=== PATIENT | female | born 1990 | race Caucasian/White ===

== ENCOUNTER → 2018-02-03 | Outpatient (CLI) | payer OTHER ==
[2018-02-03 18:05] LABS: BASO % 0.2 %; BASO ABS # 0.01 K/uL (0-0.2); EOS % 1.7 %; EOS ABS # 0.09 K/uL (0-0.5); HEMATOCRIT 39.2 % (37-47); HEMOGLOBIN 13.6 g/dL (12.0-16.0); IG# 0.01 K/uL (0.00-0.02); LYMPH % 35.7 %; LYMPH ABS # 1.93 K/uL (1.2-3.4); MEAN CELL VOLUME 91.4 fL (80-100); MEAN CORPUSCULAR HEMOGLOBIN 31.7 pg (25-34); MEAN CORPUSCULAR HGB CONC 34.7 g/dl (32-36); MEAN PLATELET VOLUME 11.4 fL (7.4-10.4); MONO % 7.8 %; MONO ABS # 0.42 K/uL (0.11-0.59); NEUT % 54.4 %; NEUT ABS # 2.94 K/uL (1.4-6.5); PLATELET COUNT 223 K/uL (130-400); RED CELL DISTRIBUTION WIDTH CV 12.6 % (11.5-14.5); RED CELL DISTRIBUTION WIDTH SD 41.9 fL (36.4-46.3)
[2018-02-03 19:16] LABS: BLOOD UREA NITROGEN 12 mg/dl (7-18); CALCIUM 8.9 mg/dl (8.5-10.1); CARBON DIOXIDE 25 mmol/L (21-32); CHOLESTEROL 149 mg/dl (0-200); GLUCOSE 83 mg/dl (70-99); POTASSIUM 4.1 mmol/L (3.5-5.1); SODIUM 139 mmol/L (136-145)
[2018-02-03 19:27] LABS: LDL CHOLESTEROL CALCULATED 80 mg/dl
== END | disposition home or self-care (01) ==
LOC: C.LABMFLN 11:32
PROVIDERS: ATTEND Family Medicine
DX: R94.6 Abnormal results of thyroid function studies (principal); E66.9 Obesity, unspecified

== ENCOUNTER 2023-08-25 09:57 | Inpatient (IN) ==
[2023-08-25] MEDS: LACTATED RINGER'S 1,000 ML IV PRN ×2 (15:00→21:31)
[2023-08-25] MEDS ORDERED: OXYTOCIN 30 UNITS/NSS 30 UNITS/500 ML BAG IV PRN (15:13)
[2023-08-25] MEDS ORDERED: LIDOCAINE 1% LOCAL 20 ML VIAL INFIL PRN (15:13)
--- NOTE | 2023-08-25 15:13 | History & Physical Report ---
Date of Service August 25, 2023 Assessment & Plan (1) Supervision of normal first : Plan: Admit to L&D. EFM/toco. Labs. IV. Watson bulb placed, 35cc sterile water. Patient tolerated well. Will plan to start pitocin. Patient agreeable to plan. Admission and Anticipated Discharge Date Admission Date: August 25, 2023 History of Present Illness Chief Complaint: IOL Primary Care Provider: Owen Sauceda, 32yo @ 39 01/03, IOL. Obesity (BMI 40 and higher @ beginning of ) *Growth US @ 32wks *Weekly NSTs @ 34wks *BMI 40 or above offer delivery by EDC. *BMI 50 or greater scheduled detailed/level II anatomy at [id number] 04/04/23 Per [facility] Recs: Recommend restricting weight gain during to 11-20 lbs. Offer Nutrition consult Refer to sleep medicine specialist with any concerns for snoring, excessive daytime sleepiness, apnea or unexplained hypoxia Early Glucola with repeat 26-28 weeks Anatomy u/s with MFM and growth u/s's q 4 weeks Baseline preeclampsia labs, AST/ALT/creatinine and 24 hour urine Deliver by EDC--> Induction scheduled for 08/25 (4th event, call at 10am, move up if able) Anesthesia consult 28 weeks Baby ASA 12 weeks posterior complete previa (resolved) *f/u growth @ 24wks. Allergies Allergy/AdvReac Type Severity Reaction Status Date / Time Penicillins Allergy Hives Verified 08/19/23 15:39 Sulfa (Sulfonamide Allergy Hives Verified 08/19/23 15:39 Antibiotics) Home Medications Medication Instructions Recorded Confirmed Type acetaminophen 325 mg tablet 325 mg PO Q6H PRN Pain 08/31/19 08/25/23 History (Tylenol) fluticasone propionate 50 1 spray intranasal DAILY PRN Nasal 09/05/22 08/25/23 History mcg/actuation nasal Congestion spray,suspension (Flonase Allergy Relief) prenat.vits,hitesh,[id number]-[id number] 1 tab PO DAILY 09/05/22 08/25/23 History aspirin 81 mg chewable tablet 81 mg PO DAILY 06/24/23 08/25/23 History Patient History Medical History Abnormal thyroid function test Noted hx per records, euthyroid on most recent labs (TSH 1.097/WNL on 02/19/23) COVID-19 06/2022- rx'd Paxlovid by [facility] PCP 05/16/2023 ([facility] Urgent care)- cold/flu symptoms, fever, congestion > resolved HPV (human papilloma virus) infection Obesity Per MFM note 02/28/23: Recommendations provided including nutrition consult, evaluating for signs of ALEX, performing gestational diabetes screening, [facility] ultrasounds + anesthesia consult Surgical History History of oral surgery History of root canal procedure Family History Mother Hypertension Family history of thyroid problem Grandmother (Maternal) Cancer S/P removal of parathyroid gland Uncle Hypertension Father Kidney stone Unknown No problems noted. Other Diabetes Social History (Updated 01/14/23 @ 10:09 by Ana Wang RN) Smoking Status: Former smoker Second Hand Exposure: Yes (friends); Do You Dip or Chew Tobacco: No; Hx Alcohol Use: No (Hx social drinking prior to ) Hx Substance Use: No Preferred Language: [place] Communication Ability: Effective Visual Impairment: No Limitations Hearing Ability: Normal Clinical Asst Required: No Beliefs That Will Affect Care: None marital status: marital status details: Maykel Youssef (35) [phone] Current Living Situation: Spouse Current Living Situation Comment: Liam Youssef current occupational status: employed 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 Other Information That Helps Us Care for You: No Feels Safe at Home: Yes Safety Concerns: Feels Safe At This Time Childhood Exposure to Second-Hand Smoke: No Dental Care, Regularly: No Seatbelt Use: always Review of Systems All systems reviewed & are unremarkable except as noted in HPI & below Physical Exam Physical Exam: FHT Cat 1 [place] none SVE c/th/high Constitutional: WD/WN, vitals as above Respiratory: normal respiratory effort, lungs clear to auscultation no respiratory distress Cardiovascular: Rate/Rhythm: regular rate and regular rhythm Gastrointestinal (Abdomen): Inspection/Auscultation: abdomen normal to inspection Percussion/Palpation: abdomen soft; abdomen nontender Gravid. No s/s chorio or abruption. Skin: no rashes, warm and dry Psychiatric: A+Ox3, euthymic affect Results & Data Vital Signs (Past 12 Hours) Vital Signs Temp Pulse Resp BP O2 Del Method 08/25/23 14:49 36.9 C 18 Room Air 08/25/23 13:56 100 H 141/77 H 08/25/23 13:55 18 08/25/23 13:55 36.9 C 18 Coding Level of Care Code None Diagnoses Supervision of normal first Z34.00
[2023-08-25] MEDS: OXYTOCIN 30 UNITS/NSS 30 UNITS/500 ML BAG IV PRN (15:32)
[2023-08-25 16:07] LABS: Hematocrit (blood only) 36.5 % (37.0-47.0); Hemoglobin 12.7 g/dl (12.0-16.0); Mean Corpuscular Hemoglobin 32.6 pg (25.0-34.0); Mean Corpuscular Hgb Conc 34.8 g/dL (32.0-36.0); Mean Corpuscular Volume 93.6 fL (80.0-100.0); Mean Platelet Volume 11.3 fL (9.4-12.4); Platelet Count 204 K/uL (130-400); RDW Coefficient of Variation 12.9 % (11.5-14.5); RDW Standard Deviation 44.2 fL (36.4-46.3); White Blood Count 9.22 K/ul (4.8-10.8)
[2023-08-25 16:39] LABS: Albumin Globulin Ratio 1.2 (0.9-2); Albumin Level 3.3 gm/dl (3.4-5.0); BUN Creatinine Ratio 12.9 (10-20); Bilirubin,Total 0.5 mg/dl (0.2-1.0); Calcium 8.9 mg/dl (8.6-10.3); Creatinine Clr Calc Pharmacy 229.5 ml/min; Est GFR (African American) 137.3 ml/min; Est GFR (Non-African American) 118.5 ml/min; Globulin 2.8 gm/dl (2.5-4.0); Potassium 3.9 mmol/L (3.5-5.1); Total Protein 6.1 gm/dl (6.0-8.3)
[2023-08-26] MEDS: LACTATED RINGER'S 1,000 ML IV PRN ×3 (05:32→14:49)
--- NOTE | 2023-08-26 06:01 | Labor Progress Brief Note ---
Date of Service August 26, 2023 Subjective Comfortable, does not desire epidural at this time. FHT Cat 1 Zillah Q 4 SVE - difficult exam, 4-5/80/-3 Continue pitocin, station too high at this time to AROM. Assessment & Plan Admission and Anticipated Discharge Date Admission Date: August 25, 2023 Results & Data Vital Signs (Past 12 Hours) Vital Signs Temp Pulse Resp BP 08/26/23 05:05 85 127/71 08/26/23 04:06 92 H 139/70 08/26/23 03:35 16 08/26/23 03:35 36.9 C 16 08/26/23 03:11 88 136/63 08/26/23 02:05 83 128/62 08/26/23 01:05 85 130/76 08/26/23 00:05 86 134/62 08/25/23 23:47 20 08/25/23 23:47 36.8 C 20 08/25/23 23:05 84 130/70 08/25/23 22:06 82 134/68 08/25/23 21:06 82 139/65 08/25/23 20:05 90 135/76 08/25/23 19:07 90 136/66 08/25/23 19:01 36.6 C 20 08/25/23 19:00 18 08/25/23 19:00 18 08/25/23 18:30 18 08/25/23 18:30 18 08/25/23 18:05 83 123/60 08/25/23 18:00 18 08/25/23 18:00 18 Coding Level of Care Code None
--- NOTE | 2023-08-26 09:32 | Labor Progress Brief Note ---
Date of Service August 26, 2023 Subjective Reason For Note: Routine Evaluation Assessment & Plan (1) Obesity affecting , antepartum: Plan: 32-year-old G1, P0 currently at 39 weeks 5 days gestational age. Induction of labor for advanced BMI 1. Fetus: Category 1 tracing 2. Labor: Status post Watson. Continue oxytocin per regular protocol. AROM for clear. 3. GBS negative 4. Vitals: Within normal limits Obesity type affecting : unspecified obesity Qualified Code(s): O99.210 - Obesity complicating , unspecified trimester (2) Supervision of normal first : Trimester: third trimester Qualified Code(s): Z34.03 - Encounter for supervision of normal first , third trimester Admission and Anticipated Discharge Date Admission Date: August 25, 2023 Physical Exam Genitourinary: Manual OB Exam: + cervical dilation 5 cm, + cervical effacement 70%, + station -2 and + amniotic fluid (AROM) clear OB Exam Monitor Tracing: + external FHT monitor used, + external uterine monitor used, + category I and + normal FHT variability; no early decelerations present, no late decelerations present and no variable decelerations Results & Data Vital Signs (Past 12 Hours) Vital Signs Temp Pulse Resp BP 08/26/23 09:05 94 H 131/74 08/26/23 08:47 37.1 C 20 08/26/23 08:05 96 H 136/76 08/26/23 07:27 36.9 C 20 08/26/23 07:11 109 H 135/66 08/26/23 06:05 100 H 127/70 08/26/23 05:05 85 127/71 08/26/23 04:06 92 H 139/70 08/26/23 03:35 16 08/26/23 03:35 36.9 C 16 08/26/23 03:11 88 136/63 08/26/23 02:05 83 128/62 08/26/23 01:05 85 130/76 08/26/23 00:05 86 134/62 08/25/23 23:47 20 08/25/23 23:47 36.8 C 20 08/25/23 23:05 84 130/70 08/25/23 22:06 82 134/68 Coding Level of Care Code None Diagnoses Obesity affecting , antepartum, unspecified obesity type O99.210 Obesity type affecting : unspecified obesity Encounter for supervision of normal first in third trimester Z34.03 Trimester: third trimester
[2023-08-26] MEDS ORDERED: fentaNYL citrate PF 100 MCG/2 ML VIAL ONE (10:05)
[2023-08-26] MEDS ORDERED: ePHEDrine sulfate 50 MG/ML AMP ONE (10:06)
[2023-08-26] MEDS ORDERED: fentANYL 2 MCG/ML BUPIVacaine 0.125%-NSS 100ML BAG ONE (10:06)
[2023-08-26] MEDS ORDERED: SODIUM CHLORIDE 0.9% PF INJ 10 ML VIAL ONE (10:06)
[2023-08-26] MEDS ORDERED: BUPIVACAINE 0.25% PF 30 ML VIAL ONE (10:06)
[2023-08-26] MEDS ORDERED: LIDOCAINE 2%/EPINEPHRINE 1:200,000 20 ML PF ONE ×2 (10:07→17:23)
--- NOTE | 2023-08-26 10:25 | Anesthesiology Consultation ---
Date of Service August 26, 2023 Assessment & Plan Chart Review Chart Review: Patient NOT seen in Pre Admission Testing and Acceptable Risk for Labor Epidural Consults Requested none ASA ASA3 Proposed Anesthesia Anesthesia Type: Labor Epidural Risk / Benefits Reviewed With: PT / POA / Parent / Guardian, Accepts Plan and Informed Consent Obtained History Height/Weight Height: 5 ft 9 in Weight: 182.344 kg Allergies Allergy/AdvReac Type Severity Reaction Status Date / Time Penicillins Allergy Hives Verified 08/19/23 15:39 Sulfa (Sulfonamide Allergy Hives Verified 08/19/23 15:39 Antibiotics) Medications Home Medications Medication Instructions Recorded Confirmed Last Taken acetaminophen 325 mg tablet 325 mg PO Q6H PRN Pain 08/31/19 08/25/23 08/24/23 08:00 (Tylenol) fluticasone propionate 50 1 spray intranasal DAILY PRN Nasal 09/05/22 08/25/23 Unknown mcg/actuation nasal Congestion spray,suspension (Flonase Allergy Relief) prenat.vits,hitesh,zsr-gjrp-wzdmh 1 tab PO DAILY 09/05/22 08/25/23 08/25/23 08:00 aspirin 81 mg chewable tablet 81 mg PO DAILY 06/24/23 08/25/23 08/25/23 08:00 Active Medications Generic Name Dose Route Start Last Admin Trade Name Freq PRN Reason Stop Dose Admin Oxytocin 30 units in 500 mls @ 24 mls/hr 08/25/23 15:13 08/26/23 10:00 Pitocin 30 Units/Nss IV 08/27/23 15:12 1.44 units/hr .[id number] PRN 24 mls/hr Labor Induction/Augmentation Titration Protocol 1.44 UNITS/HR Lactated Ringer's 1,000 mls @ 125 mls/hr 08/25/23 15:13 08/26/23 10:28 Lr IV 08/27/23 15:12 999 mls/hr .Q8H PRN Administration L&D Protocol Protocol NPO Date Last Intake of Fluids: 08/26/23 Time Last Intake of Fluids: 10:00 Date Last Intake of Solids: 08/25/23 Time Last Intake of Solids: 10:30 Past Medical History Medical History HPV (human papilloma virus) infection COVID-19 06/2022- rx'd Paxlovid by [facility] PCP 05/16/2023 ([facility] Urgent care)- cold/flu symptoms, fever, congestion > resolved Abnormal thyroid function test Noted hx per records, euthyroid on most recent labs (TSH 1.097/WNL on 02/19/23) Obesity Per MFM note 02/28/23: Recommendations provided including nutrition consult, evaluating for signs of ALEX, performing gestational diabetes screening, M ultrasounds + anesthesia consult Exercise / Class Metabolic Activity II 4-5 Yardwork/Stairs/Walk up hill Past Family History Family History Mother Hypertension Family history of thyroid problem Grandmother (Maternal) Cancer S/P removal of parathyroid gland Uncle Hypertension Father Kidney stone Unknown No problems noted. Other Diabetes Past Surgical History Surgical History History of root canal procedure History of oral surgery Past Anesthesia History No Hx of Anesthesia Complications and No Family Hx of Anesthesia Complications History of PONV No Hx of PONV and No Hx of Motion Sickness Social History Smoking Status: Former smoker Do You Dip or Chew Tobacco: No Hx Alcohol Use: No (Hx social drinking prior to ) Hx Substance Use: No substance use type: prescription drug Review of Systems ROS Unobtainable: All systems reviewed & are unremarkable except as noted in HPI & below Physical Exam Vital Signs Last Vital Signs Temp 36.4 C L 08/26/23 09:40 Pulse 107 H 08/26/23 10:05 Resp 20 08/26/23 09:40 BP 128/82 08/26/23 10:05 O2 Del Method Room Air 08/25/23 14:49 Constitutional + morbidly obese ENMT Mouth: no TMJ abnormality Thyromental Distance: > or= 3.5 Finger Breadths Mallampati Class: III Neck normal visual inspection and trachea midline; neck extension not limited Respiratory normal respiratory effort Auscultation: lungs clear to auscultation bilaterally Cardiovascular Rate/Rhythm: regular rate and regular rhythm Heart Sounds: no murmur Musculoskeletal Spine: normal cervical ROM Extremities: full ROM of extremities Neurologic moves all extremities Psychiatric Orientation: alert and oriented x 3 Testing Laboratory Results 08/25/23 15:50 11/27/23 15:50 Blood Type O Positive 08/25/23 15:50 Antibody Screen NEGATIVE 08/25/23 15:50
[2023-08-26] MEDS ORDERED: LIDOCAINE 2%/EPINEPHRINE 1:200,000 20 ML PF EPI STA (10:51)
[2023-08-26] MEDS ORDERED: fentANYL 2 MCG/ML BUPIVacaine 0.125%-NSS 100ML BAG EPI PRN (10:51)
[2023-08-26] MEDS ORDERED: NALOXONE HCL 1 MG in SODIUM CHLORIDE 0.9% 1,000 ML IV PRN ×2 (10:51→17:26)
[2023-08-26] MEDS ORDERED: LIDOCAINE 2% MPF LOCAL 5 ML VIAL EPI PRN (10:51)
[2023-08-26] MEDS ORDERED: ePHEDrine sulfate 50 MG/ML AMP IV PRN ×2 (10:51→17:26)
[2023-08-26] MEDS ORDERED: BUPIVACAINE 0.25% PF 30 ML VIAL EPI PRN (10:51)
[2023-08-26] MEDS ORDERED: SODIUM CHLORIDE 0.9% PF INJ 10 ML VIAL EPI STA (10:51)
[2023-08-26] MEDS ORDERED: SODIUM CHLORIDE 0.9% PF INJ 10 ML VIAL EPI PRN (10:51)
[2023-08-26] MEDS ORDERED: diphenhydrAMINE 50 MG/ML VIAL IV PRN ×2 (10:51→17:26)
[2023-08-26] MEDS ORDERED: NALOXONE HCL 0.4 MG/1 ML VIAL/CARP IV PRN ×2 (10:51→17:26)
[2023-08-26] MEDS ORDERED: NALBUPHINE HCL 5 MG in SYRINGE 0 ML IV PRN ×2 (10:51→17:26)
[2023-08-26] MEDS ORDERED: fentaNYL citrate PF 100 MCG/2 ML VIAL EPI PRN (10:51)
[2023-08-26] MEDS ORDERED: BUPIVACAINE 0.25% PF 30 ML VIAL EPI STA (10:51)
[2023-08-26] MEDS ORDERED: ROPIVACAINE 0.5% PF 5 MG/ML 20 ML VIAL EPI PRN (10:51)
[2023-08-26] MEDS ORDERED: fentaNYL citrate PF 100 MCG/2 ML VIAL EPI STA (10:51)
--- NOTE | 2023-08-26 14:11 | Labor Progress Brief Note ---
Date of Service August 26, 2023 Subjective Reason For Note: Routine Evaluation Assessment & Plan (1) Obesity affecting , antepartum: Plan: 32-year-old G1, P0 currently at 39 weeks 5 days gestational age. Induction of labor for advanced BMI 1. Fetus: Category 1 tracing 2. Labor: No change noted. status post Watson. Continue oxytocin per regular protocol. Status post AROM for clear. 3. GBS negative 4. Vitals: Within normal limits Obesity type affecting : unspecified obesity Qualified Code(s): O99.210 - Obesity complicating , unspecified trimester (2) Supervision of normal first : Trimester: third trimester Qualified Code(s): Z34.03 - Encounter for supervision of normal first , third trimester Admission and Anticipated Discharge Date Admission Date: August 25, 2023 Physical Exam Genitourinary: normal external appearance Manual OB Exam: + cervical dilation (4-5), + cervical effacement 70%, + station -2 and + amniotic fluid clear OB Exam Monitor Tracing: + external FHT monitor used, + external uterine monitor used, + category I and + normal FHT variability; no early decelerations present, no late decelerations present and no variable decelerations Results & Data Vital Signs (Past 12 Hours) Vital Signs Temp Pulse Resp BP Pulse Ox 08/26/23 13:59 100 H 131/62 08/26/23 13:56 101 H 100 08/26/23 13:51 98 H 100 08/26/23 13:46 95 H 129/64 100 08/26/23 13:41 92 H 100 08/26/23 13:36 83 100 08/26/23 13:31 80 100 08/26/23 13:30 82 134/61 08/26/23 13:26 112 H 100 08/26/23 13:21 105 H 100 08/26/23 13:16 103 H 100 08/26/23 13:14 102 H 128/64 08/26/23 13:11 101 H 98 08/26/23 13:06 80 100 08/26/23 13:01 94 H 100 08/26/23 12:59 88 123/60 08/26/23 12:56 96 H 100 08/26/23 12:51 88 99 08/26/23 12:46 88 100 08/26/23 12:45 36.6 C 20 08/26/23 12:44 90 124/58 L 08/26/23 12:41 83 100 08/26/23 12:36 82 100 08/26/23 12:31 97 H 20 99 08/26/23 12:29 98 H 135/65 08/26/23 12:26 89 100 08/26/23 12:21 87 100 08/26/23 12:16 92 H 100 08/26/23 12:14 96 H 142/73 H 08/26/23 12:11 101 H 99 08/26/23 12:06 91 H 99 08/26/23 12:01 101 H 99 08/26/23 11:59 96 H 135/68 08/26/23 11:56 86 98 08/26/23 11:51 90 98 08/26/23 11:46 88 99 08/26/23 11:44 93 H 139/68 08/26/23 11:41 80 99 08/26/23 11:36 91 H 99 08/26/23 11:31 83 100 08/26/23 11:29 36.7 C 95 H 20 124/67 08/26/23 11:26 92 H 99 08/26/23 11:21 95 H 99 08/26/23 11:16 108 H 100 08/26/23 11:14 95 H 137/69 08/26/23 11:11 97 H 100 08/26/23 11:06 104 H 99 08/26/23 11:01 110 H 100 08/26/23 10:59 100 H 126/59 L 08/26/23 10:57 121 H 125/60 08/26/23 10:56 106 H 99 08/26/23 10:55 102 H 132/62 08/26/23 10:53 104 H 133/63 08/26/23 10:51 98 08/26/23 10:51 102 H 08/26/23 10:51 107 H 137/65 08/26/23 10:49 116 H 135/67 08/26/23 10:47 114 H 138/69 08/26/23 10:46 107 H 99 08/26/23 10:45 102 H 147/76 H 08/26/23 10:43 100 H 147/80 H 08/26/23 10:41 105 H 100 08/26/23 10:40 96 H 147/86 H 08/26/23 10:36 102 H 100 08/26/23 10:30 36.9 C 20 08/26/23 10:05 107 H 128/82 08/26/23 09:40 36.4 C L 20 08/26/23 09:05 94 H 131/74 08/26/23 08:47 37.1 C 20 08/26/23 08:05 96 H 136/76 08/26/23 07:27 36.9 C 20 08/26/23 07:11 109 H 135/66 08/26/23 06:05 100 H 127/70 08/26/23 05:05 85 127/71 08/26/23 04:06 92 H 139/70 08/26/23 03:35 16 08/26/23 03:35 36.9 C 16 08/26/23 03:11 88 136/63 08/26/23 02:05 83 128/62 Coding Level of Care Code None Diagnoses Obesity affecting , antepartum, unspecified obesity type O99.210 Obesity type affecting : unspecified obesity Encounter for supervision of normal first in third trimester Z34.03 Trimester: third trimester
[2023-08-26] MEDS: OXYTOCIN 30 UNITS/NSS 30 UNITS/500 ML BAG IV PRN (14:58)
[2023-08-26] MEDS ORDERED: ONDANSETRON INJ 2 MG/ML 2 ML VIAL ONE (17:22)
[2023-08-26] MEDS ORDERED: OXYTOCIN 10 UNITS/ML VIAL ONE ×3 (17:22→19:12)
[2023-08-26] MEDS ORDERED: DEXAMETHASONE SOD INJ 4 MG/ML VIAL ONE (17:22)
[2023-08-26] MEDS ORDERED: KETOROLAC 30 MG/ML VIAL ONE (17:23)
[2023-08-26] MEDS ORDERED: MoRPHine SULFATE PF 1 MG/ML 10 ML AMP/VIAL ONE (17:23)
[2023-08-26] MEDS ORDERED: AZITHROMYCIN 500 MG in DEXTROSE 5% 250 ML IV ONE (17:25)
[2023-08-26] MEDS ORDERED: LACTATED RINGER'S 500 ML IV PRN (17:26)
[2023-08-26] MEDS ORDERED: MoRPHine SULFATE PF 1 MG/ML 10 ML AMP/VIAL INT SPINAL ONE (17:26)
[2023-08-26] MEDS ORDERED: NALOXONE HCL 0.08 MG in SYRINGE 1.8 ML IV PRN (17:26)
[2023-08-26] MEDS ORDERED: NO NARCOTICS OR SEDATIVES SCH (17:30)
[2023-08-26] MEDS ORDERED: SODIUM CHLORIDE 0.9% 1,000 ML IV SCH (17:30)
[2023-08-26] MEDS ORDERED: DC INTRASPINAL MORPHINE SCH (17:30)
--- NOTE | 2023-08-26 19:13 | Anesthesia Procedure Note ---
Date of Service August 26, 2023 Anesthesia Post Epidural Note Vital Signs Vital Signs: Temp Pulse Resp BP Pulse Ox O2 Del Method 37.1 C 87 22 98/50 L 100 Room Air 08/26/23 17:15 08/26/23 19:11 08/26/23 17:15 08/26/23 19:07 08/26/23 19:11 08/25/23 14:49 Notes Mental Status: alert / awake / arousable and participated in evaluation Nausea / Vomiting: adequately controlled Pain: adequately controlled Airway Patency, RR, SpO2: stable & adequate BP & HR: stable & adequate Hydration State: stable & adequate Neuraxial Anesthesia: was administered and sensory block is resolving Anesthetic Complications: no major complications apparent Epidural: Removed without complications and With tip intact
--- NOTE | 2023-08-26 19:17 | Operative Report ---
PG Post Operative Report Pre & Post Diagnosis Operation Date: 08/26/23 18:00 Pre-Op Diagnosis: Term , Labor Dystocia Post-Op Diagnosis: Term , Labor Dystocia I identified the patient and participated in the time-out.: Yes Procedure Operation Date: 08/26/23 18:00 Actual Procedures p Section in LD delivery of live female child at 1815 - Phillip Jameson MD Surgeon Phillip Jameson MD Meat Pumper Dr. Ann Cardoso Estimated Blood Loss 800 Findings Consistent with Post-Op Diagnosis Specimens None Description of Procedure The patient was taken to the operating room after consents were ensured. Upon presentation, she was properly identified. Epidural was bolused the anesthesia. The patient was then prepped and draped in normal sterile fashion. Preprocedural timeout was performed. A Pfannenstiel incision was then made with a knife. This was carried down to underlying fascia with the Bovie. The fascia was nicked at the midline with a knife and extended laterally with pickups and Ambrose scissors. The superior aspect of the fascia was grasped with Kochers x2, elevated off the underlying rectus muscles with blunt dissection and Ambrose scissors. Inferior aspect of the fascia was grasped with Kochers x2, elevated off the underlying rectus muscles using blunt dissection. The midline was then entered bluntly, placed on stretch to provide adequate room for delivery. A low transverse uterine incision was then made with a knife. The uterine cavity and amniotic cavity entered bluntly, placed on stretch to provide adequate room for delivery. Baby was noted to be in cephalic presentation and the head was delivered without difficulty. Body and shoulders quickly followed. was noted to be vigorous soon after delivery and 30 second delayed cord clamping was initiated. Cord was double clamped and cut and taken of the awaiting nursery staff for evaluation. Cord blood was obtained. Attention was then turned to delivery of the placenta, which was delivered intact, 3-vessel cord, with gentle cord traction and uterine massage. The uterus was then exteriorized, wrapped in a wet lap and several passes were made, removing any remaining membranes with a dry lap. The hysterotomy was then reapproximated with 0 Vicryl continuous running locked stitch. A second imbricating layer with 0 Vicryl with continuous running stitch. The hysterotomy was then reinspected and hemostasis was noted. Posterior cul-de-sac cleaned of clots and debris's. The uterus was then returned to the maternal abdomen. The right and left paracolic gutters were cleaned of clots and debris. The muscles, subcutaneous and fascial layers were inspected to be hemostatic.The facia was reapproximated with 0 Vicryl in continuous stitch. The subcutaneous layers were reapproximated with 2-0 plain and continuous running stitch in 3 layers. The skin was reapproximated with 3-0 Vicryl with a subcuticular stitch. Needle, sponge, and instrument counts were correct at the completion of the case. Both mother and stable in the immediate post- delivery period I attest to the content of the Intraoperative Record and any orders documented therein. Any exceptions are noted below. OB Procedure charges OB Charges 68790
[2023-08-26] MEDS ORDERED: HYDROCORTISONE ACETATE 25 MG SUPP PR PRN (19:26)
[2023-08-26] MEDS ORDERED: BENZOCAINE 20% SPRY 85 APPLN/85 GM CAN EXT PRN (19:26)
[2023-08-26] MEDS ORDERED: MAGNESIUM HYDROXIDE SUSP 30 ML UDC PO PRN (19:26)
[2023-08-26] MEDS ORDERED: OXYTOCIN 20 UNITS/LR 1,002 ML IV SCH (19:26)
[2023-08-26] MEDS ORDERED: DIPHTHERIA/TETANUS/PERTUSSIS Vaccine (Tdap, Age 7+yrs) 0.5mL SYR/VL IM ONE (19:26)
[2023-08-26] MEDS ORDERED: SENNA 8.6 MG TAB PO PRN (19:26)
[2023-08-26] MEDS ORDERED: ONDANSETRON INJ 2 MG/ML 2 ML VIAL IV PRN (19:26)
[2023-08-26] MEDS ORDERED: ACETAMINOPHEN 1,000 MG/100 ML VIAL IV STA (20:21)
[2023-08-26] MEDS: KETOROLAC TROMETHAMINE 15 MG/ML VIAL IV PRN (20:48)
[2023-08-26] MEDS: SIMETHICONE 80 MG CHEW PO SCH (21:48)
[2023-08-26] MEDS: DOCUSATE SODIUM 100 MG CAP PO SCH (21:48)
[2023-08-26] MEDS: LACTATED RINGER'S 1,000 ML IV SCH (22:25)
[2023-08-27] MEDS: LACTATED RINGER'S 1,000 ML IV SCH (03:49)
[2023-08-27] MEDS: KETOROLAC TROMETHAMINE 15 MG/ML VIAL IV PRN (03:50)
--- NOTE | 2023-08-27 04:45 | Obstetrical Progress Note ---
Date of Service <Ayush Moreno DO - Last Filed: 08/27/23 06:31> August 27, 2023 Assessment & Plan <Ayush Moreno DO - Last Filed: 08/27/23 06:31> (1) Status post delivery: Plan 32 year old female, , POD#1: Tolerating regular diet, Marin catheter still in place, not yet ambulating Vitals reviewed, WNL Pain well controlled with Toradol Routine post-op care - OOB, ambulation, diet progression as tolerated Will have 6 week follow up with Dr[address] Jameson <Phillip Jameson MD - Last Filed: 08/28/23 09:35> (1) Status post delivery: Subjective <Ayush Moreno DO - Last Filed: 08/27/23 06:31> Voiding: marin catheter in place Passing Gas:: No Diet Tolerance:: regular diet Lochia:: Small Feeding Type:: breast feeding Has not yet ambulated Pain well controlled with Toradol Review of Systems -Denies fever or chills -Denies dyspnea, chest pain, or palpitations -Denies dysuria -Denies headache or changes in vision Physical Exam <Ayush Moreno DO - Last Filed: 08/27/23 06:31> General: Alert and oriented. No acute distress Cardiac: Regular rate and rhythm, no murmurs appreciated Respiratory: Lungs clear to auscultation bilaterally, No increased work of breathing Abdominal: Soft, non-tender, non-distended. Bowel sounds present. Uterus: Uterine fundus firm, palpable below umbilicus Extremities: No lower extremity edema, calves non-tender bilaterally Results & Data <Ayush Moreno - Last Filed: 08/27/23 06:31> Vital Signs (Past 12 Hours) Vital Signs Temp Pulse Pulse Resp BP BP Pulse Ox 08/27/23 03:50 36.9 C 73 18 121/76 98 08/27/23 03:30 18 98 08/27/23 02:30 16 94 08/27/23 01:30 20 91 08/27/23 00:30 18 93 08/26/23 23:30 18 95 08/26/23 22:30 16 96 08/26/23 22:30 36.8 C 97 H 16 124/76 96 08/26/23 21:11 78 127/62 08/26/23 21:10 37.1 C 18 08/26/23 21:07 87 96 08/26/23 21:02 71 95 08/26/23 21:01 74 123/61 08/26/23 20:57 70 98 08/26/23 20:52 92 H 97 08/26/23 20:51 74 122/60 08/26/23 20:47 88 97 08/26/23 20:42 87 96 08/26/23 20:41 82 124/65 08/26/23 20:40 36.9 C 18 08/26/23 20:37 75 97 08/26/23 20:32 78 95 08/26/23 20:31 92 H 129/64 08/26/23 20:27 77 97 08/26/23 20:22 76 99 08/26/23 20:21 75 116/59 L 08/26/23 20:17 78 99 08/26/23 20:12 82 99 08/26/23 20:11 80 120/60 08/26/23 20:10 36.9 C 20 08/26/23 20:07 81 100 08/26/23 20:02 79 99 08/26/23 20:01 75 119/58 L 08/26/23 20:00 18 08/26/23 19:57 75 100 08/26/23 19:52 74 99 08/26/23 19:51 75 118/56 L 08/26/23 19:50 20 08/26/23 19:47 88 97 08/26/23 19:46 77 93 08/26/23 19:42 81 98 08/26/23 19:40 18 08/26/23 19:40 86 124/60 08/26/23 19:37 91 H 100 08/26/23 19:32 101 H 99 08/26/23 19:30 16 08/26/23 19:27 100 08/26/23 19:27 90 08/26/23 19:27 93 H 124/56 L 08/26/23 19:22 99 H 100 08/26/23 19:20 16 08/26/23 19:17 100 H 100 08/26/23 19:11 87 100 08/26/23 19:10 36.9 C 18 08/26/23 19:07 90 98/50 L 08/26/23 19:06 94 H 100 08/26/23 17:46 103 H 100 08/26/23 17:44 95 H 145/68 H 08/26/23 17:41 94 H 100 08/26/23 17:36 96 H 100 08/26/23 17:31 92 H 100 08/26/23 17:29 85 139/82 08/26/23 17:26 98 H 100 08/26/23 17:21 99 08/26/23 17:21 106 H 08/26/23 17:21 95 H 92 08/26/23 17:16 104 H 100 08/26/23 17:15 37.1 C 22 08/26/23 17:15 100 H 135/74 08/26/23 17:11 98 H 100 08/26/23 17:06 98 H 100 08/26/23 17:01 95 H 100 08/26/23 16:59 85 136/71 08/26/23 16:56 99 H 100 08/26/23 16:51 90 100 08/26/23 16:46 99 H 100 O2 Del Method 08/27/23 03:50 Room Air 08/27/23 03:30 08/27/23 02:30 08/27/23 01:30 08/27/23 00:30 08/26/23 23:30 08/26/23 22:30 08/26/23 22:30 Room Air 08/26/23 21:11 08/26/23 21:10 08/26/23 21:07 08/26/23 21:02 08/26/23 21:01 08/26/23 20:57 08/26/23 20:52 08/26/23 20:51 08/26/23 20:47 08/26/23 20:42 08/26/23 20:41 08/26/23 20:40 08/26/23 20:37 08/26/23 20:32 08/26/23 20:31 08/26/23 20:27 08/26/23 20:22 08/26/23 20:21 08/26/23 20:17 08/26/23 20:12 08/26/23 20:11 08/26/23 20:10 08/26/23 20:07 08/26/23 20:02 08/26/23 20:01 08/26/23 20:00 08/26/23 19:57 08/26/23 19:52 08/26/23 19:51 08/26/23 19:50 08/26/23 19:47 08/26/23 19:46 08/26/23 19:42 08/26/23 19:40 08/26/23 19:40 08/26/23 19:37 08/26/23 19:32 08/26/23 19:30 08/26/23 19:27 08/26/23 19:27 08/26/23 19:27 08/26/23 19:22 08/26/23 19:20 08/26/23 19:17 08/26/23 19:11 08/26/23 19:10 08/26/23 19:07 08/26/23 19:06 08/26/23 17:46 08/26/23 17:44 08/26/23 17:41 08/26/23 17:36 08/26/23 17:31 08/26/23 17:29 08/26/23 17:26 08/26/23 17:21 08/26/23 17:21 08/26/23 17:21 08/26/23 17:16 08/26/23 17:15 08/26/23 17:15 08/26/23 17:11 08/26/23 17:06 08/26/23 17:01 08/26/23 16:59 08/26/23 16:56 08/26/23 16:51 08/26/23 16:46 Supervising Physician <Phillip Jameson MD - Last Filed: 08/28/23 09:35> Co-Signing Physician Notes Patient seen with resident and agree with the above findings and plan. Routine care Resident Activity Tracking <Ayush Moreno DO - Last Filed: 08/27/23 06:31> Resident Involvement: Resident Care Provided Care Provided: OB Delivery
[2023-08-27] MEDS ORDERED: CITRIC ACID/SODIUM CITRATE 15 ML UDC PO SCH (06:00)
[2023-08-27 06:54] LABS: Basophils # (auto) 0.02 K/uL (0.00-0.20); Basophils % (auto) 0.2 %; Eosinophils # (auto) 0.01 K/uL (0.00-0.50); Eosinophils % (auto) 0.1 %; Hematocrit (blood only) 29.5 % (37.0-47.0); Hemoglobin 10.6 g/dl (12.0-16.0); Immature Granulocytes # (auto) 0.08 K/uL (0.01-0.20); Immature Granulocytes % (auto) 0.6 %; Lymphocytes # (auto) 1.51 K/uL (1.20-3.40); Lymphocytes % (auto) 12.1 %; Mean Corpuscular Hemoglobin 32.6 pg (25.0-34.0); Mean Corpuscular Hgb Conc 35.9 g/dL (32.0-36.0); Mean Corpuscular Volume 90.8 fL (80.0-100.0); Mean Platelet Volume 12.2 fL (9.4-12.4); Monocytes # (auto) 0.87 K/uL (0.11-0.59); Neutrophils # (auto) 9.99 K/uL (1.40-6.50); Platelet Count 149 K/uL (130-400); RDW Coefficient of Variation 12.4 % (11.5-14.5); RDW Standard Deviation 41.1 fL (36.4-46.3); Red Blood Count 3.25 M/uL (4.20-5.40); White Blood Count 12.48 K/ul (4.8-10.8)
[2023-08-27] MEDS: FERROUS SULFATE 325 MG TAB PO SCH (09:34)
[2023-08-27] MEDS: SIMETHICONE 80 MG CHEW PO SCH ×4 (09:34→21:06)
[2023-08-27] MEDS: PRENATAL VITAMIN 1 TAB PO SCH (09:34)
[2023-08-27] MEDS: DOCUSATE SODIUM 100 MG CAP PO SCH ×2 (09:34→21:06)
[2023-08-27] MEDS: IBUPROFEN 600 MG TAB PO PRN ×3 (10:35→22:32)
[2023-08-27] MEDS: MICONAZOLE NITRATE POWDER 85 GM EXT SCH ×2 (10:38→21:07)
[2023-08-27] MEDS ORDERED: KETOROLAC 30 MG/ML VIAL IV PRN (11:30)
[2023-08-27] MEDS ORDERED: diphenhydrAMINE 50 MG/ML VIAL IV PRN (11:30)
[2023-08-27] MEDS ORDERED: PROMETHAZINE HCL 25 MG in SODIUM CHLORIDE 0.9% 50 ML IV PRN (11:30)
[2023-08-27] MEDS ORDERED: diphenhydrAMINE Capsule 25 MG CAP PO PRN (11:30)
[2023-08-27] MEDS: oxyCODONE/ACETAMINOPHEN 5mg/325mg TAB PO PRN ×3 (11:58→22:32)
[2023-08-27] MEDS ORDERED: bisacodyL 5 MG TABEC PO SCH (20:00)
[2023-08-28] MEDS: oxyCODONE/ACETAMINOPHEN 5mg/325mg TAB PO PRN ×3 (04:05→13:02)
[2023-08-28] MEDS: IBUPROFEN 600 MG TAB PO PRN ×5 (04:05→23:08)
--- NOTE | 2023-08-28 04:39 | Obstetrical Progress Note ---
Date of Service <Ayush Moreno - Last Filed: 08/28/23 05:36> August 28, 2023 Assessment & Plan <Ayush Moreno DO - Last Filed: 08/28/23 05:36> (1) Status post delivery: Plan 32 year old female, , POD#2: Tolerating regular diet, voiding well, ambulating well Vitals reviewed, WNL Pain well controlled with Percocet nad Motrin Routine post-op care - OOB, ambulation, diet progression as tolerated Will have 6 week follow up with Dr. Jameson <Ann Cardoso MD - Last Filed: 08/28/23 07:30> (1) Status post delivery: Subjective <Ayush Moreno - Last Filed: 08/28/23 05:36> Ambulation: ambulating normally Voiding: no voiding problems Passing Gas:: Yes Diet Tolerance:: regular diet Lochia:: Moderate Feeding Type:: breast feeding Pain well controlled with Percocet and Motrin Review of Systems -Denies fever or chills -Denies dyspnea, chest pain, or palpitations -Denies dysuria -Denies headache or changes in vision Physical Exam <Ayush Moreno - Last Filed: 08/28/23 05:36> General: Alert and oriented. No acute distress Cardiac: Regular rate and rhythm, no murmurs appreciated Respiratory: Lungs clear to auscultation bilaterally, No increased work of breathing Abdominal: Soft, non-tender, non-distended. Bowel sounds present. Uterus: Uterine fundus firm, palpable below umbilicus Skin: Incision site clean, dry, and intact Extremities: No lower extremity edema, calves non-tender bilaterally Results & Data <Ayush Moreno - Last Filed: 08/28/23 05:36> Vital Signs (Past 12 Hours) Vital Signs Temp Pulse Resp BP O2 Del Method 08/28/23 00:36 36.5 C 89 16 103/68 Room Air 08/27/23 19:35 36.6 C 99 H 16 122/80 Room Air Supervising Physician <Ann Cardoso MD - Last Filed: 08/28/23 07:30> Co-Signing Physician Notes Resident Physician Supervision Note: I interviewed and examined the patient. Discussed with Dr. Moreno and agree with findings and plan as documented in the note. Any exceptions or clarifications are listed here: POD2 s/p pLTCS, doing well. VSS, exam benign and wnl. Incision c/d/i. Continue routine pp care Documented By: Ann Cardoso MD Resident Activity Tracking <Ayush Moreno, - Last Filed: 08/28/23 05:36> Resident Involvement: Resident Care Provided Care Provided: OB Delivery
[2023-08-28 07:52] LABS: Hematocrit (blood only) 31.4 % (37.0-47.0)
[2023-08-28] MEDS: PRENATAL VITAMIN 1 TAB PO SCH (08:10)
[2023-08-28] MEDS: DOCUSATE SODIUM 100 MG CAP PO SCH ×2 (08:10→19:38)
[2023-08-28] MEDS: SIMETHICONE 80 MG CHEW PO SCH ×4 (08:11→19:38)
[2023-08-28] MEDS: FERROUS SULFATE 325 MG TAB PO SCH (08:11)
[2023-08-28] MEDS: MICONAZOLE NITRATE POWDER 85 GM EXT SCH ×2 (08:18→19:38)
[2023-08-28] MEDS ORDERED: bisacodyL 10 MG SUPP PR PRN (18:39)
--- NOTE | 2023-08-29 04:59 | Obstetrical Progress Note ---
Date of Service <Ayush Moreno - Last Filed: 08/29/23 06:27> August 29, 2023 Assessment & Plan <Ayush Moreno - Last Filed: 08/29/23 06:27> (1) Status post delivery: Plan 32 year old female, , POD#3: Tolerating regular diet, voiding well, ambulating well Vitals reviewed, WNL Pain well controlled with Percocet and Motrin Routine post-op care - OOB, ambulation, diet progression as tolerated Will have 6 week follow up with Dr. Jameson <Bert Kenny MD, FACOG - Last Filed: 08/29/23 07:21> (1) Status post delivery: Subjective <Ayush Moreno DO - Last Filed: 08/29/23 06:27> Ambulation: ambulating normally Voiding: no voiding problems Passing Gas:: Yes Diet Tolerance:: regular diet Lochia:: Small Feeding Type:: breast feeding Pain well controlled with Percocet and Motrin Review of Systems -Denies fever or chills -Denies dyspnea, chest pain, or palpitations -Denies dysuria -Denies headache or changes in vision Physical Exam <Ayush Moreno DO - Last Filed: 08/29/23 06:27> General: Alert and oriented. No acute distress Cardiac: Regular rate and rhythm, no murmurs appreciated Respiratory: Lungs clear to auscultation bilaterally, No increased work of breathing Abdominal: Soft, non-tender, non-distended. Bowel sounds present. Uterus: Uterine fundus firm, palpable below umbilicus Skin: Incision site clean, dry, and intact Extremities: No lower extremity edema, calves non-tender bilaterally Results & Data <Ayush Moreno DO - Last Filed: 08/29/23 06:27> Vital Signs (Past 12 Hours) Vital Signs Temp Pulse Resp BP O2 Del Method 08/29/23 01:10 36.5 C 98 H 16 127/79 Room Air 08/28/23 19:35 36.6 C 89 16 125/77 Room Air Supervising Physician <Bert Kenny MD, FACOG - Last Filed: 08/29/23 07:21> Co-Signing Physician Notes Resident Physician Supervision Note: I was present with Dr. Moreno during the history and exam. I discussed the case with the resident and agree with the findings and plan as documented in the note. Any exceptions or clarifications are listed here: [None] Documented By: Bert Kenny MD, FACOG Resident Activity Tracking <Ayush Moreno DO - Last Filed: 08/29/23 06:27> Resident Involvement: Resident Care Provided Care Provided: OB Delivery
[2023-08-29] MEDS: SIMETHICONE 80 MG CHEW PO SCH ×2 (08:09→12:55)
[2023-08-29] MEDS: FERROUS SULFATE 325 MG TAB PO SCH (08:10)
[2023-08-29] MEDS: DOCUSATE SODIUM 100 MG CAP PO SCH (08:10)
[2023-08-29] MEDS: PRENATAL VITAMIN 1 TAB PO SCH (08:10)
[2023-08-29] MEDS: IBUPROFEN 600 MG TAB PO PRN (08:10)
[2023-08-29] MEDS: MICONAZOLE NITRATE POWDER 85 GM EXT SCH (08:13)
--- NOTE | 2023-09-02 07:26 | Discharge Summary ---
Date of Service September 02, 2023 Admission HPI Per Admitting Provider 32yo @ 39 01/03, IOL. Obesity (BMI 40 and higher @ beginning of ) *Growth US @ 32wks *Weekly NSTs @ 34wks *BMI 40 or above offer delivery by [facility]. *BMI 50 or greater scheduled detailed/level II anatomy at [id number] 04/04/23 Per [facility] Recs: Recommend restricting weight gain during to 11-20 lbs. Offer Nutrition consult Refer to sleep medicine specialist with any concerns for snoring, excessive daytime sleepiness, apnea or unexplained hypoxia Early Glucola with repeat 26-28 weeks Anatomy u/s with [facility] and growth u/s's q 4 weeks Baseline preeclampsia labs, AST/ALT/creatinine and 24 hour urine Deliver by ED[facility]--> Induction scheduled for 08/25 (4th event, call at 10am, move up if able) Anesthesia consult 28 weeks Baby ASA 12 weeks posterior complete previa (resolved) *f/u growth @ 24wks. Discharge Data Consultations 08/25/23 15:13 Consult Anesthesiology Stat Procedures Performed Operation Date: 08/26/23 18:00 Actual Procedures p Section in LD delivery of live female child at 1815 - Phillip Jameson MD Hospital Course (1) Obesity affecting , antepartum: Angel is a 32-year-old admitted for induction of labor. Patient's labor course involved cervical ripening Watson, Pitocin and rupture of membranes for clear fluid. Patient at 5 cm dilation for approximately 12 hours without cervical change. Patient opted to proceed with a primary secondary to failure to progress. section was performed without complication. Patient remained in-house for 3 days postdelivery and was discharged home in stable condition. Patient provided both written and verbal discharge instructions (2) Supervision of normal first : Coding Level of Care Code None Diagnoses Obesity affecting , antepartum, unspecified obesity type O99.210 Obesity type affecting : unspecified obesity Encounter for supervision of normal first in third trimester Z34.03 Trimester: third trimester
== END 2023-08-29 14:35 | disposition home or self-care (01) | DRG 788 ==
LOC: 4S1 13:46 → 4E2 08-26 21:51